=== PATIENT | male | born 1990 | race Caucasian/White ===

== ENCOUNTER 2023-05-13 18:27 | Emergency (ER) | payer BC ==
[~2023-05-13] VITALS: Ht 190 cm; Wt 109.0 kg
[2023-05-13] MEDS ORDERED: morphine INJ 10 MG/ML 1ML (SYR OR VIAL) IV STA (18:38)
[2023-05-13] MEDS ORDERED: NS IV 1000 ML 1,000 ML IV STA (18:38)
--- NOTE | 2023-05-13 18:42 | ED Chest Pain ---
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 Onset of the symptoms within the last 2 hours after getting home from work. 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 He states he drinks quite a bit of water. He states that he took some Tylenol at home for the pain without any relief of symptoms. The patient gradually became more intense after work to the point that he describes it as a "10 out of 10" pain. He was a little nauseous and short of breath with the chest pain. He has never had pain like this before. He states he has urinated normally today. Normal bowel movements. He does have an extensive family history of early coronary artery disease. The patient is a non-smoker, nondrinker. He does not take medications for blood pressure. No illicit substances. Nothing makes the chest pain any worse or better. Nothing makes the back pain any worse or better. He states the back pain is located low across the top of his hips. It does not radiate into his groin or down his legs. He denies leg weakness, numbness. No loss of bowel or bladder function. He did have a trip and near fall yesterday which resulted in an ankle sprain on the left. Patient denies any recent prolonged immobility or extensive travel. He has had no recent surgeries. He has never had a blood clot before. Timing/Duration: 1-3 hours Severity/Quality: severe Location: central (left central) Radiation: no radiation Activities at Onset: other (just after work) Prior CP/Workup: no prior chest pain, no prior cardiac workup ASA po [employer] ADMINISTRATOR: No NTG SL [employer] ADMINISTRATOR: No Associated Symptoms: back pain, nausea/vomiting, shortness of breath Allergies and Home Medications Allergies Coded Allergies: No Known Drug Allergies (Unverified , 05/13/23) Patient Home Medication List Home Medication List Reviewed: Yes Methocarbamol (Methocarbamol) 750 Mg Tablet, 750 MG PO Q8H Prescribed by: NAIF KRISHNAMURTHY on 05/13/232144 Review of Systems Review of Systems Constitutional: see HPI EENTM: No Symptoms Reported Respiratory: Shortness of Air Cardiovascular: Chest Pain Gastrointestinal: Nausea Genitourinary: No Symptoms Reported Musculoskeletal: back pain Skin: no symptoms reported Past Rnrztmz-Qmlbmq-Wkmuql Hx Patient Social History Tobacco Use?: No Use of E-Cig and/or Vaping dev: No Substance use?: No Alcohol Use?: No Pt feels they are or have been: No Past Medical History Surgery/Hospitalization HX: R WRIST SURGERY Physical Exam Vital Signs Vital Signs - First Documented 05/13/23 18:30 Temp 37.1 Pulse 94 Resp 15 B/P (MAP) 165/111 (129) Pulse Ox 98 O2 Delivery Room Air Capillary Refill : Height, Weight, BMI Height: '" Weight: lbs. oz. 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 Norm as Tested Skin: Normal Color, Warm/Dry Progress/Results/Core Measures Results/Orders Lab Results Laboratory Tests Test 05/13/23 18:32 05/13/23 19:05 05/13/23 20:51 Range/Units White Blood Count 8.6 4.3-11.0 10^3/uL Red Blood Count 4.73 4.30-5.52 10^6/uL Hemoglobin 13.6 13.3-17.7 g/dL Hematocrit 40 40-54 % Mean Corpuscular Volume 84 80-99 fL Mean Corpuscular Hemoglobin 29 25-34 pg Mean Corpuscular Hemoglobin Concent 34 32-36 g/dL Red Cell Distribution Width 12.9 10.0-14.5 % Platelet Count 247 130-400 10^3/uL Mean Platelet Volume 11.4 9.0-12.2 fL Immature Granulocyte % (Auto) 0 % Neutrophils (%) (Auto) 57 42-75 % Lymphocytes (%) (Auto) 31 12-44 % Monocytes (%) (Auto) 9 0-12 % Eosinophils (%) (Auto) 2 0-10 % Basophils (%) (Auto) 1 0-10 % Neutrophils # (Auto) 4.9 1.8-7.8 10^3/uL Lymphocytes # (Auto) 2.7 1.0-4.0 10^3/uL Monocytes # (Auto) 0.8 0.0-1.0 10^3/uL Eosinophils # (Auto) 0.2 0.0-0.3 10^3/uL Basophils # (Auto) 0.1 0.0-0.1 10^3/uL Immature Granulocyte # (Auto) 0.0 0.0-0.1 10^3/uL Prothrombin Time 12.9 12.2-14.7 SEC INR Comment 1.0 0.8-1.4 Activated Partial Thromboplast Time 29 24-35 SEC Sodium Level 144 135-145 MMOL/L Potassium Level 3.7 3.6-5.0 MMOL/L Chloride Level 109 H 98-107 MMOL/L Carbon Dioxide Level 25 21-32 MMOL/L Anion Gap 10 5-14 MMOL/L Blood Urea Nitrogen 7 7-18 MG/DL Creatinine 0.93 0.60-1.30 MG/DL Estimat Glomerular Filtration Rate 112 BUN/Creatinine Ratio 8 Glucose Level 95 70-105 MG/DL Calcium Level 9.2 8.5-10.1 MG/DL Corrected Calcium 8.5-10.1 MG/DL Magnesium Level 2.0 1.6-2.4 MG/DL Total Bilirubin 0.3 0.1-1.0 MG/DL Aspartate Amino Transf (AST/SGOT) 24 5-34 U/L Alanine Aminotransferase (ALT/SGPT) 32 0-55 U/L Alkaline Phosphatase 50 40-136 U/L Total Creatine Kinase 282 H 30-200 U/L Troponin I < 0.028 < 0.028 <0.028 NG/ML Total Protein 6.9 6.4-8.2 GM/DL Albumin 4.8 H 3.2-4.5 GM/DL Urine Color YELLOW Urine Clarity CLEAR Urine pH 7.0 5-9 Urine Specific [place] <=1.005 1.016-1.022 Urine Protein NEGATIVE NEGATIVE Urine Glucose (UA) NEGATIVE NEGATIVE Urine Ketones NEGATIVE NEGATIVE Urine Nitrite NEGATIVE NEGATIVE Urine Bilirubin NEGATIVE NEGATIVE Urine Urobilinogen 0.2 < = 1.0 MG/DL Urine Leukocyte Esterase NEGATIVE NEGATIVE Urine RBC (Auto) NEGATIVE NEGATIVE Urine RBC NONE /HPF Urine WBC NONE /HPF Urine Squamous Epithelial Cells NONE /HPF Urine Crystals NONE /LPF Urine Bacteria NEGATIVE /HPF Urine Casts NONE /LPF Urine Mucus NEGATIVE /LPF Urine Culture Indicated NO My Orders Orders - NAIF KRISHNAMURTHY MD Ekg Tracing (05/13/23 18:29) Cbc With Automated Diff (05/13/23 18:38) Magnesium (05/13/23 18:38) Chest 1 View, Ap/Pa Only (05/13/23 18:38) Comprehensive Metabolic Panel (05/13/23 18:38) Protime With Inr (05/13/23 18:38) Partial Thromboplastin Time (05/13/23 18:38) O2 (05/13/23 18:38) Monitor-Rhythm Ecg Trace Only (05/13/23 18:38) Ed Iv/Invasive Line Start (05/13/23 18:38) Troponin I [place] (05/13/23 18:38) Aspirin Chewable Tablet (Aspirin Chewabl (05/13/23 18:45) Morphine Injection (Morphine Injection (05/13/23 18:38) Ns Iv 1000 Ml (Sodium Chloride 0.9%) (05/13/23 18:38) Ondansetron Injection (Zofran Injectio (05/13/23 18:45) Creatine Kinase (05/13/23 19:11) Ua Culture If Indicated (05/13/23 19:11) Ekg Tracing (05/13/23 19:19) Nitroglycerin 0.4 Mg Btl 25's (Nitroglyc (05/13/23 19:30) Ketorolac Injection (Ketorolac Injection (05/13/23 19:45) Orphenadrine Inj (Ed Only) (Norflex Inje (05/13/23 19:45) Troponin I [place] (05/13/23 20:29) Ketorolac Injection (Ketorolac Injection (05/13/23 21:00) Medications Given in ED Current Medications Medications Dose Ordered Sig/Amanda Route Start Time Stop Time Status Last Admin Dose Admin Aspirin 324 mg ONCE ONCE PO 05/13/23 18:45 05/13/23 18:46 DC 05/13/23 18:47 324 MG Ketorolac Tromethamine 15 mg ONCE ONCE IVP 05/13/23 19:45 05/13/23 19:46 DC 05/13/23 19:41 15 MG Ketorolac Tromethamine 15 mg ONCE ONCE IVP 05/13/23 21:00 05/13/23 21:01 DC 05/13/23 21:03 15 MG Nitroglycerin 1 TAB Q 5 MIN X 3 NEEDED PRN SL 05/13/23 19:30 05/13/23 22:02 DC 05/13/23 19:26 0.4 MG Ondansetron HCl 4 mg ONCE ONCE IVP 05/13/23 18:45 05/13/23 18:46 DC 05/13/23 18:47 4 MG Orphenadrine Citrate 60 mg ONCE ONCE IV 05/13/23 19:45 05/13/23 19:46 DC 05/13/23 19:40 60 MG Vital Signs/I&O 05/13/23 05/13/23 18:30 22:00 Temp 37.1 37.1 Pulse 94 85 Resp 15 15 B/P (MAP) 165/111 (129) 152/80 Pulse Ox 98 98 O2 Delivery Room Air Room Air Blood Pressure Mean: 129 Progress Progress Note : Time: 21:40 Progress Note Patient seen and evaluated by me. Evaluation today includes physical exam, "chest pain work-up" to include CBC, Chem-12, magnesium level, troponin x2, coag panel, UA, single view chest x-ray, EKG x2. Pertinent physical exam findings well-developed well-nourished male in mild distress due to pain. He is quite hypertensive on arrival. Heart is regular, lungs are clear. Abdomen is soft. No reproducible chest wall tenderness. Patient has some tenderness to palpation in the low lumbar paraspinous musculature. Negative straight leg raise bilaterally. Normal distal pulses and sensation. Normal strength in the lower extremities, no saddle anesthesia. 2+ radial pulses, 2+ dorsalis pedis pulses. Differential diagnosis based on history and physical exam, dehydration, aortic dissection, acute coronary syndrome Labs, EKG and chest x-ray independently reviewed and interpreted by me. Total EKG is normal sinus rhythm without ectopy or ST segment change, repeat 1 hour later due to ongoing pain remains unchanged. Chest x-ray shows no acute abnormality, no widened mediastinum, no effusion, no infiltrate. CBC is reviewed and normal, Chem-12 is reviewed and normal. Magnesium within normal limits. Troponin x2 undetectable. Urinalysis shows no evidence of hematuria or infection. Patient was initially given 324 mg of aspirin followed by morphine 4 mg and Zofran 4 mg. When he did not achieve any significant relief I switched to sublingual nitro which made no improvement in his pain whatsoever. Patient was then given 60 mg of IV Norflex and a total of 30 mg of IV Toradol. Patient reevaluated after second troponin and second dose of Toradol feeling mu ch better. Able to sit up and lay down much more comfortably. Suspect that the majority of his symptoms are due to working out in the heat and some dehydration. He has no concerning findings for acute coronary syndrome or aortic dissection. No concerning complaints or supporting physical exam findings for pulmonary embolism. No concerning findings for acute cauda equina syndrome. Continues to deny numbness tingling weakness to the groin or legs. No radiating pain down the legs. I reviewed discharge recommendation with the patient and his . Kfet-vzu-joldewu naproxen 2 pills twice daily with food for the next 2 to 3 days. Alternate heat and ice to the low back at the area of his pain. If any numbness tingling weakness or increasing pain recurs to please return to the emergency room for reevaluation. Initial ECG Impression Date: May 13, 2023 Initial ECG Impression Time: 18:34 Initial ECG Rate: 98 Initial ECG Rhythm: S.Tach Initial ECG Intervals: Normal Initial ECG Impression: Normal EKG : EKG Time: 19:22 Rate: 75 Rhythm: Normal Sinus Intervals: Normal ECG Comparisson: Unchanged ECG Impression: Normal Diagnostic Imaging Diagonstic Imaging: Xray Plain Films/CT/US/NM/MRI: chest Comments [facility] [place], [place] NAME: BERTHA REYNAGA [facility] REC#: [id number] PT STATUS: REG ER : 1990 PHYSICIAN: NAIF KRISHNAMURTHY MD ADMIT DATE: 05/13/23/ER Signed Date of Exam:05/13/23 CHEST 1 VIEW, AP/PA ONLY CHEST 1 VIEW, AP/PA ONLY INDICATION: Chest pain. COMPARISON: None. FINDINGS: Lungs: Normal lung volume. No focal consolidation. Stable pulmonary vasculature. Pleura: No pleural effusion or pneumothorax. Heart and Mediastinum: Cardiomediastinal silhouette and great vessels of the thorax are stable. Osseous Structures and Soft Tissues: No acute osseous abnormality. Normal soft tissues. IMPRESSION: No acute cardiopulmonary process. Dictated by: Dictated on workstation # [id number] Dict: 05/13/231946 Trans: 05/13/231947 [facility] [id number] Interpreted by: KATIE GRUBER DO Electronically signed by: KATIE GRUBER DO 05/13/231947 Departure Impression Primary Impression: Chest pain Qualified Codes: R07.9 - Chest pain, unspecified Additional Impression: Low back pain Qualified Codes: M54.50 - Low back pain, unspecified Disposition: 01 HOME, SELF-CARE Condition: Stable Departure-Patient Inst. Decision time for Depature: 21:42 Referrals: NO,LOCAL PHYSICIAN (PCP) Primary Care Physician Patient Instructions: Low Back Pain ED Add. Discharge Instructions: Take qsts-ftn-fbssnkt naproxen (Aleve), 2 tablets twice daily with food as needed for pain. Methocarbamol 750mg tablets, 1-2 every 8 hours as needed for muscle spasm/discomfort. Alternate heat and ice packs to the low back at the area of pain over the course of the next 24 hours. Do get up and move around frequently to stay "limber". You can also apply uxnf-irf-tbfooux lidocaine patches for pain, available at the pharmacy -please follow packaging directions for use. If you develop any numbness, tingling or weakness to the legs or any other acute, emergent symptoms please return to the emergency department for reevaluation. Follow up with your primary care physician. Scripts Methocarbamol (Methocarbamol) 750 Mg Tablet 750 MG PO Q8H for Back Pain, #20 TAB Prov: NAIF KRISHNAMURTHY MD 05/13/23 NAIF KRISHNAMURTHY MD May 13, 2023 18:42
[2023-05-13] MEDS ORDERED: ONDANSETRON INJECTION 4 MG/2 ML (SDV) IVP ONE (18:45)
[2023-05-13] MEDS ORDERED: ASPIRIN 81 MG CHEWABLE TABLET PO ONE (18:45)
[2023-05-13 18:51] LABS: BASOPHILS # (AUTO) 0.1 10^3/uL (0.0-0.1); BASOPHILS % (AUTO) 1 % (0-10); EOSINOPHILS # (AUTO) 0.2 10^3/uL (0.0-0.3); EOSINOPHILS % (AUTO) 2 % (0-10); HEMATOCRIT 40 % (40-54); HEMOGLOBIN 13.6 g/dL (13.3-17.7); LYMPHOCYTES # (AUTO) 2.7 10^3/uL (1.0-4.0); LYMPHOCYTES % (AUTO) 31 % (12-44); MEAN CORPUSCULAR HEMOGLOBIN 29 pg (25-34); MEAN CORPUSCULAR HGB CONC 34 g/dL (32-36); MEAN CORPUSCULAR VOLUME 84 fL (80-99); MEAN PLATELET VOLUME 11.4 fL (9.0-12.2); MONOCYTES # (AUTO) 0.8 10^3/uL (0.0-1.0); MONOCYTES % (AUTO) 9 % (0-12); NEUTROPHILS # (AUTO) 4.9 10^3/uL (1.8-7.8); NEUTROPHILS % (AUTO) 57 % (42-75); PLATELET COUNT 247 10^3/uL (130-400); WHITE BLOOD COUNT 8.6 10^3/uL (4.3-11.0)
[2023-05-13 19:00] LABS: PROTHROMBIN TIME PATIENT 12.9 SEC (12.2-14.7)
[2023-05-13 19:03] LABS: ALBUMIN 4.8 GM/DL (3.2-4.5); CHLORIDE 109 MMOL/L (98-107); POTASSIUM 3.7 MMOL/L (3.6-5.0); SODIUM 144 MMOL/L (135-145)
[2023-05-13 19:04] LABS: CALCIUM 9.2 MG/DL (8.5-10.1)
[2023-05-13 19:05] LABS: GLUCOSE 95 MG/DL (70-105); TOTAL PROTEIN 6.9 GM/DL (6.4-8.2)
[2023-05-13 19:06] LABS: CARBON DIOXIDE 25 MMOL/L (21-32)
[2023-05-13 19:07] LABS: BILIRUBIN,TOTAL 0.3 MG/DL (0.1-1.0)
[2023-05-13 19:09] LABS: ALKALINE PHOSPHATASE 50 U/L (40-136); CREATININE SERUM 0.93 MG/DL (0.60-1.30); GFR ESTIMATED 112
[2023-05-13 19:10] LABS: BUN/CREATININE RATIO 8
[2023-05-13 19:12] LABS: ALANINE AMINOTRANSFERASE 32 U/L (0-55)
[2023-05-13 19:27] LABS: CLARITY,URINE CLEAR; COLOR,URINE YELLOW
[2023-05-13 19:28] LABS: BACTERIA,URINE NEGATIVE /HPF; BILIRUBIN,URINE NEGATIVE (NEGATIVE); GLUCOSE, URINE (UA) NEGATIVE (NEGATIVE); KETONES,URINE NEGATIVE (NEGATIVE); LEUKOCYTE ESTERASE ,URINE NEGATIVE (NEGATIVE); NITRITE,URINE NEGATIVE (NEGATIVE); PROTEIN,URINE NEGATIVE (NEGATIVE)
[2023-05-13] MEDS ORDERED: NITROGLYCERIN 0.4 MG SL TABLETS BTL 25'S SL PRN (19:30)
[2023-05-13] MEDS ORDERED: ORPHENADRINE 60 MG/2 ML AMP (ED ONLY) IV ONE (19:45)
[2023-05-13] MEDS ORDERED: KETOROLAC INJ 15 MG/ML VIAL IVP ONE ×2 (19:45→21:00)
--- NOTE | 2023-05-13 19:49 | Diagnostic Imaging Report ---
CHEST 1 VIEW, AP/PA ONLY INDICATION: Chest pain. COMPARISON: None. FINDINGS: Lungs: Normal lung volume. No focal consolidation. Stable pulmonary vasculature. Pleura: No pleural effusion or pneumothorax. Heart and Mediastinum: Cardiomediastinal silhouette and great vessels of the thorax are stable. Osseous Structures and Soft Tissues: No acute osseous abnormality. Normal soft tissues. IMPRESSION: No acute cardiopulmonary process. Dictated by: Dictated on workstation # [id number]
[2023-05-13] MEDS ORDERED: METH-732 PO (21:45)
[2023-05-13 22:00] VITALS: BP 152/80
== END 2023-05-13 22:01 | disposition home or self-care (01) ==
LOC: ER 18:33
DX: R07.2 Precordial pain (principal); M54.50 Low back pain, unspecified
CPT/HCPCS: 36415; 71045; 80053; 81000; 82550; 83735; 84484; 85025; 85610; 85730; 93005; 93041